=== PATIENT | male | born 1950 | race Caucasian/White ===

== ENCOUNTER 2018-08-03 10:22 | Emergency (ER) | payer BC ==
[~2018-08-03] VITALS: Ht 170.2 cm; Wt 76.2 kg
[~2018-08-03 10:22] MED LIST: ADV250/50 IH; AMO500 PO; CIP250 PO; FLUTICASONE NS; MEDDP PO; MOT600 PO; MUCINEX600 MG PO; PRE10 PO; PRO40 PO; PROAIR HFA0.09 MG/A1 IH; PROMETHAZINE SYRUP PO; PROVENTIL IH; SING10 PO; ZOC20 PO
[2018-08-03 10:34] VITALS: Ht 170.2 cm; Wt 76.2 kg
[2018-08-03 11:19] VITALS: BP 124/75
== END 2018-08-03 11:19 | disposition home or self-care (01) ==
LOC: ED 10:22
DX: J06.9 Acute upper respiratory infection, unspecified (principal); J45.909 Unspecified asthma, uncomplicated; R55 Syncope and collapse
CPT/HCPCS: Q0092

== ENCOUNTER 2018-08-11 11:14 | Emergency (ER) | payer BC ==
[~2018-08-11] VITALS: Ht 170.2 cm; Wt 75.7 kg
[2018-08-11 11:31] VITALS: Ht 170.2 cm; Wt 75.7 kg
[2018-08-11 13:11] LABS: BASOPHIL % 0.3 % (0-2); PLATELET COUNT 303 x10^3mcL (130-400); RED CELL DISTRIBUTION WIDTH 12.8 % (11.5-14.5)
[2018-08-11 13:30] LABS: CALCIUM 8.9 mg/dL (8.5-10.1); CARBON DIOXIDE 28.5 mmol/L (21-32); CHLORIDE SERUM 103 mmol/L (98-107); GFR1 > 60 mL/min; GLUCOSE SERUM 86 mg/dL (74-106); POTASSIUM SERUM 4.3 mmol/L (3.5-5.1); SODIUM SERUM 138 mmol/L (136-145)
[2018-08-11 13:32] LABS: ALBUMIN 3.7 g/dL (3.4-5.0); ALKALINE PHOSPHATASE 63 U/L (46-116); ALT/SGPT 32 U/L (16-63); AST/SGOT 15 U/L (15-37); BILIRUBIN TOTAL 0.5 mg/dL (0.20-1.00); HDL CHOLESTEROL 47 mg/dL (40-60); LIPASE 133 IU/L (73-393); TOTAL PROTEIN, SERUM 7.8 g/dL (6.4-8.2); TRIGLYCERIDES 151 mg/dL (<150)
[2018-08-11 13:33] LABS: CHOLESTEROL 262 mg/dL (<200); CHOLESTEROL/HDL RATIO 5.6
[2018-08-11 13:40] LABS: T3 TOTAL 0.76 ng/mL
[2018-08-11 13:44] LABS: FREE T4 0.9 ng/dL (0.76-1.46); FREE THYROXINE INDEX 2.8 ug/dL (1.4-4.5); T4(THYROXINE) 8.1 ug/dL (4.7-13.3)
[2018-08-11 15:47] VITALS: BP 121/79
== END 2018-08-11 15:47 | disposition home or self-care (01) ==
LOC: ED 11:14
PROVIDERS: Specialist
DX: R42 Dizziness and giddiness (principal); J45.909 Unspecified asthma, uncomplicated; H93.13 Tinnitus, bilateral; R51 Headache; R05 Cough; R09.81 Nasal congestion
CPT/HCPCS: 83880; 84439; J2405; J7030; J8597; Q0092

== ENCOUNTER 2018-09-07 11:26 | Emergency (ER) | payer BC ==
[~2018-09-07] VITALS: Ht 170.2 cm; Wt 74.8 kg
[2018-09-07 11:48] VITALS: Ht 170.2 cm; Wt 74.8 kg
[2018-09-07 13:21] LABS: BASOPHIL % 0.7 % (0-2); PLATELET COUNT 244 x10^3mcL (130-400); RED CELL DISTRIBUTION WIDTH 13.4 % (11.5-14.5)
[2018-09-07 13:27] LABS: CALCIUM 9.1 mg/dL (8.5-10.1); CARBON DIOXIDE 26.5 mmol/L (21-32); CHLORIDE SERUM 102 mmol/L (98-107); GFR1 > 60 mL/min; GLUCOSE SERUM 86 mg/dL (74-106); POTASSIUM SERUM 3.9 mmol/L (3.5-5.1); SODIUM SERUM 138 mmol/L (136-145)
[2018-09-07 13:38] LABS: ALBUMIN 3.8 g/dL (3.4-5.0); ALKALINE PHOSPHATASE 68 U/L (46-116); ALT/SGPT 45 U/L (16-63); AST/SGOT 20 U/L (15-37); BILIRUBIN TOTAL 0.43 mg/dL (0.20-1.00); HDL CHOLESTEROL 44 mg/dL (40-60); LIPASE 123 IU/L (73-393); MAGNESIUM 2.2 mg/dL (1.8-2.4); T4(THYROXINE) 6.9 ug/dL (4.7-13.3); TOTAL PROTEIN, SERUM 7.8 g/dL (6.4-8.2)
[2018-09-07 13:40] LABS: CHOLESTEROL 252 mg/dL (<200)
[2018-09-07 14:16] LABS: microscopic required? NO
[2018-09-07 14:31] LABS: urine erythrocyte NEGATIVE (NEGATIVE)
[2018-09-07 15:00] LABS: AMPHETAMINE QUAL UR NONE DETECTED (See below)
[2018-09-07 15:58] VITALS: BP 130/80
== END 2018-09-07 15:58 | disposition home or self-care (01) ==
LOC: ED 11:26
PROVIDERS: Emergency Medicine
DX: R42 Dizziness and giddiness (principal); J45.909 Unspecified asthma, uncomplicated; E78.00 Pure hypercholesterolemia, unspecified
CPT/HCPCS: 82962; J2550; J7030; J8597; Q0092